=== PATIENT | male | born 1975 | race Caucasian/White ===

== ENCOUNTER 2023-10-15 09:41 | Emergency (ER) | payer MEDICAID ==
[~2023-10-15] VITALS: Ht 165.1 cm; Wt 68.9 kg
[2023-10-15 09:48] VITALS: O2SAT 100
[2023-10-15 10:57] LABS: BASOPHILS % 0.3 % (0.0-2.0); EOSINOPHILS % 0.7 % (0.0-5.0); HEMOGLOBIN. 17.2 g/dL (14.0-18.0); LYMPHOCYTES % 12.2 % (20.0-50.0); MEAN CORPUSCULAR HEMOGLOBIN 28.2 pg (28.0-32.0); MEAN CORPUSCULAR HGB CONC 33.1 g/dL (31.0-37.0); MEAN CORPUSCULAR VOLUME 85.1 fL (80.0-94.0); MEAN PLATELET VOLUME 8.7 fl (7.4-10.4); MONOCYTES % 5.4 % (2.0-8.0); NEUTROPHILS % 81.4 % (40.0-76.0); PLATELET 346 x1000/uL (130-400); RED BLOOD CELL COUNT 6.11 mill/uL (4.7-6.1); RED CELL DISTRIBUTION WIDTH 14.8 % (11.6-14.6); WHITE BLOOD COUNT 12.4 x1000/uL (4.5-11.0)
[2023-10-15 11:06] LABS: ALANINE AMINOTRANSFERASE 25 IU/L (10-49); ALBUMIN 5.1 g/dL (3.2-4.8); ASPARTATE AMINOTRANSFERASE 20 IU/L (<34); BILIRUBIN TOTAL 0.9 mg/dL (0.1-1.0); CALCIUM 9.7 mg/dL (8.7-10.4); CARBON DIOXIDE 25 mEq/L (21-32); CHLORIDE 102 mEq/L (98-107); CREATININE 0.9 mg/dL (0.6-1.3); GLUCOSE 101 mg/dL (70-105); POTASSIUM 4.3 mEq/L (3.5-5.1); PROTEIN TOTAL 8.6 g/dL (6.0-8.3); SODIUM 137 mEq/L (136-145); UREA NITROGEN BLOOD 13 mg/dL (9-23)
[2023-10-15] MEDS ORDERED: ONDANSETRON HCL 4MG/2ML INJ IV STA (11:22)
[2023-10-15] MEDS ORDERED: ACETAMINOPHEN 325MG TABLET PO STA (11:22)
[2023-10-15] MEDS ORDERED: MECL-299 MT (12:06)
[2023-10-15] MEDS ORDERED: ACET-2708 PO (12:06)
[2023-10-15 12:45] VITALS: BP 116/64; PULSE 84; RESP 16; TEMP 98.4
== END 2023-10-15 12:46 | disposition home or self-care (01) ==
LOC: ER 09:41
DX: R51.9 Headache, unspecified (principal); R25.2 Cramp and spasm; I10 Essential (primary) hypertension
CPT/HCPCS: 99283; 96374; 80053; 85025; 36415; J2405

== ENCOUNTER 2024-06-16 09:05 | Emergency (ER) | payer OTHER ==
[~2024-06-16] VITALS: Ht 165.1 cm; Wt 78.0 kg
[~2024-06-16 09:05] MED LIST: ACET-2708 PO; MECL-299 MT
[2024-06-16] MEDS: MORPHINE SULFATE 4 MG/ML INJ (FOR IV/IM USE) IM ONE (10:00)
[2024-06-16 13:07] VITALS: O2SAT 100
[2024-06-16 13:11] VITALS: TEMP 36.66960
[2024-06-16] MEDS: KETAMINE HCL 50 MG/ML 10ML IV ONE (13:23)
[2024-06-16] MEDS: PROPOFOL 200MG/20ML VIAL IV ONE (13:24)
[2024-06-16] MEDS: LIDOCAINE HCL/EPINEPHRINE 1%-EPI 1:100,000 20ML VIAL INFIL ONE (13:24)
[2024-06-16] MEDS ORDERED: IBUP-2030 MT (15:54)
[2024-06-16 16:22] VITALS: BP 145/92; PULSE 85; RESP 18; O2SAT 97
== END 2024-06-16 17:32 | disposition home or self-care (01) ==
LOC: ER 09:05
DX: S80.812A Abrasion, left lower leg, initial encounter (principal); M25.552 Pain in left hip; F17.200 Nicotine dependence, unspecified, uncomplicated; W18.39XA Other fall on same level, initial encounter; Y93.89 Activity, other specified; Y92.89 Other specified places as the place of occurrence of the external cause; Y99.8 Other external cause status
CPT/HCPCS: 73501; 73110; 25605; 96372; 99152; 99285; J3490 ×2; J2704; J2270; Z7610 ×5